=== PATIENT | female | born 1930 | race Caucasian/White ===

== ENCOUNTER 2016-09-17 15:51 | Outpatient (RCR) | payer MEDICARE ==
--- OUTSIDE RECORDS SUMMARY | 2016-08-19 10:27 | XMS REPORT | Continuity of Care Document ---
Author Author [facility] Organization [facility] Address Unknown Phone Unavailable Care Team Providers Care Thread Puller Name Role Phone PEE AHUJA MD PCP Insurance Providers Payer Name Policy Number Subscriber Name Relationship [employer] Medicare [id number] Yahir Jacobson 18 Self / Same As Patient Blue Cross [facility] Supp [id number] Yahir Jacobson 18 Self / Same As Patient Advance Directives Directive Response Recorded Date/Time Advance Directives Yes 05/30/14 12:59pm Health Care Power of Propulsion Engineer Y TEX 05/30/14 12:59pm Organ Donor No 05/30/14 12:59pm Problems No known problems or medical conditions. Medications Medication Dose Route Sig Days/Qty Instructions Order Date Discontinued Date Status Nebivolol Hcl 06/07/11 05/30/14 Discontinued Bisoprolol Fumarate 5 Mg PO DAILY 05/30/14 Active Social History No social history. Hospital Discharge Instructions No hospital discharge instructions. Plan of Care No plan of care. Functional Status No functional status results. Allergies, Adverse Reactions, Alerts Allergen Type Severity Reaction Status Last Updated No Known Drug Allergies Active 10/02/10 Immunizations No immunization records. Vital Signs No known vital signs results. Results Test Source Date Result Interp. Ref. Range Comments Activated Partial Thromboplast Time June 07, 2011 2:24pm 35 SEC N 24-35 Alanine Aminotransferase (ALT/SGPT) June 14, 2014 11:30am 11 U/L N 0-55 Albumin June 14, 2014 11:30am 3.6 G/DL N 3.2-4.5 Alkaline Phosphatase June 14, 2014 11:30am 71 U/L N 40-136 Aspartate Amino Transf (AST/SGOT) June 14, 2014 11:30am 32 U/L N 5-34 BUN/Creatinine Ratio June 14, 2014 11:30am 21 - Basophils # (Auto) June 14, 2014 11:30am 0.0 10^3/uL N 0.0-0.1 Basophils (%) (Auto) June 14, 2014 11:30am 0 % N 0-10 Blood Urea Nitrogen June 14, 2014 11:30am 19 MG/DL H 7-18 Calcium Level June 14, 2014 11:30am 9.2 MG/DL N 8.5-10.1 Carbon Dioxide Level June 14, 2014 11:30am 25 MMOL/L N 21-32 Chloride Level June 14, 2014 11:30am 109 MMOL/L H 98-107 Creatinine June 14, 2014 11:30am 0.92 MG/DL N 0.60-1.30 Eosinophils # (Auto) June 14, 2014 11:30am 0.1 10^3/uL N 0.0-0.3 Eosinophils (%) (Auto) June 14, 2014 11:30am 2 % N 0-10 Glucose Level June 14, 2014 11:30am 91 MG/DL N 70-105 Hematocrit June 14, 2014 11:30am 34 % L 35-52 Hemoglobin June 14, 2014 11:30am 11.5 G/DL N 11.5-16.0 Lactate Dehydrogenase June 14, 2014 11:30am 246 U/L H 125-220 Lymphocytes # (Auto) June 14, 2014 11:30am 0.9 X 10^3 L 1.0-4.0 Lymphocytes (%) (Auto) June 14, 2014 11:30am 19 % N 12-44 Magnesium Level June 07, 2011 2:24pm 2.1 MG/DL N 1.8-2.4 Mean Corpuscular Hemoglobin June 14, 2014 11:30am 27 PG N 25-34 Mean Corpuscular Hemoglobin Concent June 14, 2014 11:30am 34 G/DL N 32- 36 Mean Corpuscular Volume June 14, 2014 11:30am 82 FL N 80-99 Mean Platelet Volume June 14, 2014 11:30am 8.9 FL N 7.4-10.4 Monocytes # (Auto) June 14, 2014 11:30am 0.5 X 10^3 N 0.0-1.0 Monocytes (%) (Auto) June 14, 2014 11:30am 11 % N 0-12 Myoglobin June 07, 2011 2:24pm 66 UG/L N 10-92 Neutrophils # (Auto) June 14, 2014 11:30am 3.2 X 10^3 N 1.8-7.8 Neutrophils (%) (Auto) June 14, 2014 11:30am 68 % N 42-75 Platelet Count June 14, 2014 11:30am 236 10^3/uL N 130-400 Potassium Level June 14, 2014 11:30am 3.9 MMOL/L N 3.6-5.0 Prothromb Time International Ratio June 07, 2011 2:24pm 0.9 N 0.8-1.4 INTERPRETIVE DATASUGGESTED THERAPEUTIC RANGE FOR INR'S: VENOUS THROMBOSIS, PULMONARY EMBOLISM, OR PREVENTION OF SYSTEMIC EMBOLISM (EG. IN ATRIAL FIBRILLATION): 2.0 - 3.0 MECHANICAL PROSTHETIC HEART VALVES: 2.5 - 3.5* *NOTE: INR'S UP TO 4.5 MAY BE NECESSARY IN SELECTED GROUPS OF HIGH RISK PATIENTS. [employer] CONSENSUS CONFERENCE ON ANTITHROMBOTIC THERAPY (2000). Prothrombin Time June 07, 2011 2:24pm 12.8 SEC N 12.2-14.7 Red Blood Count June 14, 2014 11:30am 4.21 10^6/uL L 4.35-5.85 Red Cell Distribution Width June 14, 2014 11:30am 14.9 % H 10.0-14.5 Sodium Level June 14, 2014 11:30am 140 MMOL/L N 135-145 Total Bilirubin June 14, 2014 11:30am 0.6 MG/DL N 0.1-1.0 Total Protein June 14, 2014 11:30am 6.9 G/DL N 6.4-8.2 Troponin I June 07, 2011 2:24pm < 0.10 MG/ML 0.00-0.10 White Blood Count June 14, 2014 11:30am 4.7 10^3/uL N 4.3-11.0 Lab Scanned Report June 07, 2011 2:08pm Referred Lab Report [id number] - Estimat Glomerular Filtration Rate June 14, 2014 11:30am 58 - GFR INTERPRETIVE DATA UNITS FOR ESTIMATED GFR (eGFR): mL/min/1.73 M2 REFERENCE RANGE FOR ESTIMATED GFR (eGFR) eGFR NORMAL eGFR >60 MODERATELY DECREASED eGFR 30-59 SEVERLY DECREASED eGFR 15-29 KIDNEY FAILURE <15 (OR DIALYSIS) Creatine Kinase June 07, 2011 2:24pm 108 U/L N 1-159 Cardiac Panel Pathologist Review June 07, 2011 2:24pm SEE CARDIAC PATH REV - MRSA Screen Nasal May 30, 2014 1:50pm MRSA not isolated Procedures No known history of procedures. Encounters Encounter Location Date/Time Discharged Recurring [facility] 06/28/14 12:54pm
[2016-08-19 12:18] LABS: BASOPHILS % (AUTO) 1 % (0-10); EOSINOPHILS % (AUTO) 0 % (0-10); LYMPHOCYTES # (AUTO) 0.5 X 10^3 (1.0-4.0); LYMPHOCYTES % (AUTO) 12 % (12-44); MEAN CORPUSCULAR HEMOGLOBIN 28 PG (25-34); MEAN CORPUSCULAR HGB CONC 33 G/DL (32-36); MEAN CORPUSCULAR VOLUME 85 FL (80-99); MEAN PLATELET VOLUME 9.8 FL (7.4-10.4); MONOCYTES # (AUTO) 0.5 X 10^3 (0.0-1.0); MONOCYTES % (AUTO) 12 % (0-12); NEUTROPHILS % (AUTO) 75 % (42-75); PLATELET COUNT 276 10^3/uL (130-400); RED BLOOD COUNT 3.67 10^6/uL (4.35-5.85); RED CELL DISTRIBUTION WIDTH 16.1 % (10.0-14.5)
[2016-08-19 12:42] LABS: ALBUMIN 3.3 G/DL (3.2-4.5); BILIRUBIN,TOTAL 0.5 MG/DL (0.1-1.0); CREATININE SERUM 1.16 MG/DL (0.60-1.30); MAGNESIUM 1.9 MG/DL (1.8-2.4); POTASSIUM 4.4 MMOL/L (3.6-5.0); TOTAL PROTEIN 5.3 G/DL (6.4-8.2)
[2016-08-19 13:32] LABS: URIC ACID 8.8 MG/DL (2.6-7.2)
[2016-08-20 15:28] LABS: CREATININE SERUM 1.53 MG/DL (0.60-1.30); POTASSIUM 5.2 MMOL/L (3.6-5.0); URIC ACID 8.9 MG/DL (2.6-7.2)
[2016-08-20 15:31] LABS: CALCIUM 13.7 MG/DL (8.5-10.1)
[2016-08-21 13:39] LABS: CALCIUM 12.5 MG/DL (8.5-10.1); CREATININE SERUM 1.74 MG/DL (0.60-1.30); POTASSIUM 5.1 MMOL/L (3.6-5.0); URIC ACID 9.6 MG/DL (2.6-7.2)
[2016-08-23 10:34] LABS: BASOPHILS % (AUTO) 0 % (0-10); EOSINOPHILS # (AUTO) 0.1 10^3/uL (0.0-0.3); EOSINOPHILS % (AUTO) 3 % (0-10); LYMPHOCYTES # (AUTO) 0.3 X 10^3 (1.0-4.0); LYMPHOCYTES % (AUTO) 8 % (12-44); MEAN CORPUSCULAR HEMOGLOBIN 28 PG (25-34); MEAN CORPUSCULAR HGB CONC 33 G/DL (32-36); MEAN CORPUSCULAR VOLUME 85 FL (80-99); MEAN PLATELET VOLUME 9.7 FL (7.4-10.4); MONOCYTES # (AUTO) 0.5 X 10^3 (0.0-1.0); MONOCYTES % (AUTO) 11 % (0-12); NEUTROPHILS # (AUTO) 3.5 X 10^3 (1.8-7.8); NEUTROPHILS % (AUTO) 79 % (42-75); PLATELET COUNT 259 10^3/uL (130-400); RED CELL DISTRIBUTION WIDTH 16.1 % (10.0-14.5); WHITE BLOOD COUNT 4.5 10^3/uL (4.3-11.0)
[2016-08-23 10:52] LABS: ALBUMIN 2.9 G/DL (3.2-4.5); BILIRUBIN,TOTAL 0.3 MG/DL (0.1-1.0); CALCIUM 10.9 MG/DL (8.5-10.1); CREATININE SERUM 1.4 MG/DL (0.60-1.30); POTASSIUM 4.3 MMOL/L (3.6-5.0); TOTAL PROTEIN 4.8 G/DL (6.4-8.2); URIC ACID 2.5 MG/DL (2.6-7.2)
[2016-09-16 14:44] LABS: BASOPHILS % (AUTO) 1 % (0-10); EOSINOPHILS # (AUTO) 0.1 10^3/uL (0.0-0.3); EOSINOPHILS % (AUTO) 1 % (0-10); LYMPHOCYTES # (AUTO) 0.5 X 10^3 (1.0-4.0); LYMPHOCYTES % (AUTO) 11 % (12-44); MEAN CORPUSCULAR HEMOGLOBIN 28 PG (25-34); MEAN CORPUSCULAR HGB CONC 32 G/DL (32-36); MEAN CORPUSCULAR VOLUME 87 FL (80-99); MEAN PLATELET VOLUME 9.1 FL (7.4-10.4); MONOCYTES # (AUTO) 0.8 X 10^3 (0.0-1.0); MONOCYTES % (AUTO) 15 % (0-12); NEUTROPHILS # (AUTO) 3.6 X 10^3 (1.8-7.8); NEUTROPHILS % (AUTO) 72 % (42-75); PLATELET COUNT 386 10^3/uL (130-400); RED BLOOD COUNT 3.39 10^6/uL (4.35-5.85); RED CELL DISTRIBUTION WIDTH 17.8 % (10.0-14.5); WHITE BLOOD COUNT 4.9 10^3/uL (4.3-11.0)
[2016-09-16 15:21] LABS: ALBUMIN 3.3 G/DL (3.2-4.5); BILIRUBIN,TOTAL 0.6 MG/DL (0.1-1.0); CALCIUM 7.6 MG/DL (8.5-10.1); CREATININE SERUM 1.58 MG/DL (0.60-1.30); MAGNESIUM 1.3 MG/DL (1.8-2.4); POTASSIUM 4.4 MMOL/L (3.6-5.0); TOTAL PROTEIN 5.3 G/DL (6.4-8.2); URIC ACID 2.7 MG/DL (2.6-7.2)
[~2016-09-17] VITALS: Ht 162.6 cm; Wt 73.0 kg
[~2016-09-17 15:51] MED LIST: ACETAMINOPHEN 325 MG TAB (TYLENOL) CANCER CTR ONE; ACETAMINOPHEN 325 MG TAB (TYLENOL) CANCER CTR PO PRN; APIX2.5T PO; APIX5TAB PO; BENDAMUSTINE HCL 130 MG in NS (IVPB) CANCER CENTER 50 ML IV SCH; BENDAMUSTINE HCL 150 MG in NS (IVPB) CANCER CENTER 50 ML IV SCH; BISO5TAB8 PO; CARV3.122 PO; ENZY1CAP3 PO; ENZY1TAB5 PO; FOLI1TAB7 PO; FURO-125 PO; FURO20TA4 PO; FURO40TA4 PO; L.AC1CAP6 PO; LISI-556 PO; NEBI5TAB8; NS IV 1000 ML (CANCER CTR) 1,000 ML ONE; NS IV 500 ML (CANCER CENTER) 500 ML ONE; NS IV 500 ML (CANCER CENTER) IV SCH; NS IV ONE; ONDANSETRON 16 MG, DEXAMETHASONE 10 MG/NS 50 ML IVPB IV SCH; PAMIDRONATE IV ONE; POTA8CAP9 PO; POTA8TAB6 PO; RASBURICASE IV ONE; SPIR25TA3 PO; TRAM-42 PO; TRAM50TA2 PO; diphenhydrAMINE 50 MG/ML INJ (CANCER CENTER) IV PRN; diphenhydrAMINE 50 MG/ML INJ (CANCER CENTER) ONE; riTUXimab 500 MG, riTUXimab FOR IV INJ CONC 200 MG in NS (IVPB) CANCER CENTER 163 ML IV SCH
== END 2016-11-17 | disposition home or self-care (01) ==
LOC: ONC 15:51
PROVIDERS: ATTEND Internal Medicine Hematology & Oncology
DX: Z51.11 Encounter for antineoplastic chemotherapy (principal); C83.39 Diffuse large B-cell lymphoma, extranodal and solid organ sites; D64.9 Anemia, unspecified; Z79.899 Other long term (current) drug therapy
CPT/HCPCS: 36591; 80048; 80053; 83615; 83735; 84550; 85025; 96360; 96361; 96365; 96366; 96367; 96375; 96409; 96411; 96413; 96415; 99213